=== PATIENT | male | born 1960 | race Caucasian/White ===

== ENCOUNTER 2023-05-15 09:34 | Outpatient (CLI) | payer BC | END 2023-05-15 09:35 | disposition home or self-care (01) | LOC: CSHRAD 09:34 | PROVIDERS: ATTEND Otolaryngology Plastic Surgery within the Head & Neck | DX: R13.10 Dysphagia, unspecified (principal); K44.9 Diaphragmatic hernia without obstruction or gangrene | CPT/HCPCS: 74220 ==

== ENCOUNTER → 2023-05-15 | Day surgery (SDC) | payer BC | LOC: CSHRAD 09:34 | PROVIDERS: ATTEND Otolaryngology Plastic Surgery within the Head & Neck | DX: R13.10 Dysphagia, unspecified (principal) ==

== ENCOUNTER 2024-03-12 13:03 | Outpatient (CLI) | payer BC | END 2024-03-12 13:04 | disposition home or self-care (01) | LOC: CSHCT 13:03 | PROVIDERS: ATTEND Family Medicine | DX: R10.32 Left lower quadrant pain (principal) | CPT/HCPCS: 36415; 74177; 82565 ==